=== PATIENT | male | born 1965 | race Caucasian/White ===

== ENCOUNTER 2023-09-29 15:19 | Inpatient (IN) | payer OTHER ==
[2023-09-29 17:27] VITALS: BMI 26.9
[2023-09-29] MEDS ORDERED: chlordiazePOXIDE HCL 25 MG CAPSULE PO PRN (18:01)
[2023-09-29] MEDS ORDERED: BENZOCAINE/MENTHOL (CHLORASEPTIC ) LOZENGE MM PRN (18:27)
[2023-09-29] MEDS ORDERED: POLYETHYLENE GLYCOL (HEALTHYLAX) 3350 17 GM PACKET PO PRN (18:27)
[2023-09-29] MEDS ORDERED: DICYCLOMINE HCL 10 MG CAPSULE PO PRN (18:27)
[2023-09-29] MEDS ORDERED: IBUPROFEN 400 MG TABLET (FP) PO PRN (18:27)
[2023-09-29] MEDS ORDERED: MAGNESIUM HYDROX 2400MG/30ML ORAL SUSPENSION 30 ML CUP PO PRN (18:27)
[2023-09-29] MEDS ORDERED: ONDANSETRON *ODT* 4 MG TABLET SL PRN (18:27)
[2023-09-29] MEDS ORDERED: LOPERAMIDE HCL 2 MG CAPSULE PO PRN (18:27)
[2023-09-29] MEDS ORDERED: BENZONATATE 200 MG CAPSULE PO PRN (18:27)
[2023-09-29] MEDS ORDERED: NICOTINE POLACRILEX 2 MG GUM BUC PRN (18:27)
[2023-09-29] MEDS ORDERED: P-EPHED 60MG/TRIPROLIDI 2.5MG TABLET PO PRN (18:27)
[2023-09-29] MEDS ORDERED: levETIRAcetam 500 MG TABLET (FP) PO ONE (18:27)
[2023-09-29] MEDS ORDERED: guaiFENesin 600 MG TABLET.ER (FP) PO PRN (18:27)
[2023-09-29] MEDS ORDERED: MAG HYDROX/AL HYDROX/SIMETH 30 ML UNIT-DOSE CUP PO PRN (18:27)
[2023-09-29] MEDS: levETIRAcetam 500 MG TABLET (FP) PO SCH (18:35)
[2023-09-29] MEDS: propRANOLol HCL 10 MG TABLET PO ONE (18:35)
[2023-09-29] MEDS: chlordiazePOXIDE HCL 25 MG CAPSULE PO SCH (18:35)
[2023-09-29] MEDS: THIAMINE HCL 100 MG TABLET (FP) PO SCH (22:13)
[2023-09-29] MEDS: BACITRACIN 0.9 GM PACKET TP SCH (22:13)
[2023-09-29] MEDS: MELATONIN 5 MG TABLETS PO SCH (22:14)
[2023-09-30] MEDS: PRENATAL VITAMINS W/ FOLIC ACID TABLET (FP) PO SCH (10:31)
[2023-09-30 10:48] LABS: HEMATOCRIT 35.5 % (35.4-49); HEMOGLOBIN 11.6 GM/dL (11.7-16.9); MCH 30.2 pg (25.7-33.7); MCHC 32.8 g/dl (32.0-35.9); MEAN CELL VOLUME 92.2 fl (80-96); MEAN PLT VOLUME 7.8 fl (7.5-11.1); PLATELET COUNT 135 10^3/uL (134-434); RBC 3.85 M/mm3 (4.00-5.60); RDW 18.4 % (11.9-15.9); WHITE BLOOD COUNT 4.1 K/mm3 (4.0-10.0)
[2023-09-30 11:25] LABS: POTASSIUM 3.7 mmol/L (3.5-5.1)
[2023-09-30 11:35] LABS: BLOOD UREA NITROGEN 13.2 mg/dL (7-18); CALCIUM 8.2 mg/dL (8.5-10.1)
[2023-09-30 11:38] LABS: CREATININE 0.5 mg/dL (0.55-1.3)
[2023-09-30 11:40] LABS: BILIRUBIN,TOTAL 0.7 mg/dL (0.2-1); TOT PROT 6.4 g/dl (6.4-8.2)
[2023-09-30] MEDS: ACETAMINOPHEN 325 MG TABLET (FP) PO PRN (18:46)
[2023-09-30] MEDS: BISMUTH SUBSALICYLATE 524 MG/30 ML PO PRN (18:46)
[2023-10-01] MEDS: chlordiazePOXIDE HCL 25 MG CAPSULE PO SCH (05:57)
[2023-10-01] MEDS: METHOCARBAMOL 500 MG TABLET PO PRN (20:23)
[2023-10-02] MEDS: chlordiazePOXIDE HCL 10 MG CAPSULE PO PRN (00:48)
[2023-10-02] MEDS: chlordiazePOXIDE HCL 10 MG CAPSULE PO SCH (04:28)
[2023-10-03] MEDS: chlordiazePOXIDE HCL 10 MG CAPSULE PO SCH (05:22)
[2023-10-03] MEDS: ASPIRIN 81 MG CHEWABLE TABLETS PO ONE (08:36)
[2023-10-03 10:57] VITALS: BP 129/81; PULSE 72; RESP 17; TEMP 97.7
[2023-10-04] MEDS ORDERED: chlordiazePOXIDE HCL 10 MG CAPSULE PO ONE (05:00)
== END 2023-09-30 23:00 | disposition short-term general hospital (02) | DRG 775 ==
LOC: YASAS 15:19 → Y3N 18:39
PROVIDERS: ADMIT Allergy & Immunology; ATTEND Surgery
PROC: HZ2ZZZZ Detoxification Services for Substance Abuse Treatment (ICD-10-PCS; principal; 2023-09-29)
DX: F10.230 Alcohol dependence with withdrawal, uncomplicated (principal); I10 Essential (primary) hypertension; R07.9 Chest pain, unspecified; R29.6 Repeated falls; Z59.00 Homelessness unspecified; I25.2 Old myocardial infarction
CPT/HCPCS: 36415; 80053; 85027; 86780; 87635; 93005; 93010

== ENCOUNTER 2023-10-03 09:36 | Observation (INO) | payer OTHER ==
[2023-10-03 10:07] VITALS: BMI 26.9
[2023-10-03] MEDS ORDERED: chlordiazePOXIDE HCL 10 MG CAPSULE ONE (12:17)
[2023-10-03] MEDS: chlordiazePOXIDE HCL 10 MG CAPSULE PO ONE (12:20)
[2023-10-03 12:29] LABS: BASO % 0.7 % (0-2.0); EOS % 3.7 % (0-4.5); HEMATOCRIT 40.5 % (35.4-49); HEMOGLOBIN 13.3 GM/dL (11.7-16.9); LYMPH % 22.7 % (8-40); MCH 30.2 pg (25.7-33.7); MCHC 32.7 g/dl (32.0-35.9); MEAN CELL VOLUME 92.4 fl (80-96); MEAN PLT VOLUME 7.3 fl (7.5-11.1); MONO % 11.4 % (3.8-10.2); NEUT % 61.5 % (42.8-82.8); PLATELET COUNT 193 10^3/uL (134-434); RBC 4.38 M/mm3 (4.00-5.60); RDW 18.8 % (11.9-15.9); WHITE BLOOD COUNT 5.4 K/mm3 (4.0-10.0)
[2023-10-03 12:46] LABS: POTASSIUM 4.2 mmol/L (3.5-5.1)
[2023-10-03 12:48] LABS: ALBUMIN 3.5 g/dl (3.4-5.0); CALCIUM 9.1 mg/dL (8.5-10.1)
[2023-10-03 12:49] LABS: BLOOD UREA NITROGEN 8.2 mg/dL (7-18)
[2023-10-03 12:52] LABS: CREATININE 0.6 mg/dL (0.55-1.3)
[2023-10-03 12:54] LABS: BILIRUBIN,TOTAL 0.3 mg/dL (0.2-1); TOT PROT 7.6 g/dl (6.4-8.2)
[2023-10-03 13:12] LABS: INR 0.92 (0.83-1.09); PROTHROMBIN TIME (PATIENT) 10.7 SEC (9.7-13.0)
[2023-10-03 13:14] LABS: ACTIVATED PTT 28.1 SECONDS (25.2-36.5)
[2023-10-03 13:34] LABS: N-TERMINAL BNP 668.9 pg/ml (5-125)
[2023-10-03] MEDS ORDERED: chlordiazePOXIDE HCL 25 MG CAPSULE PO PRN (22:19)
[2023-10-03] MEDS ORDERED: chlordiazePOXIDE HCL 25 MG CAPSULE ONE (22:45)
[2023-10-03] MEDS: chlordiazePOXIDE HCL 25 MG CAPSULE PO ONE (22:47)
[2023-10-03] MEDS: chlordiazePOXIDE HCL 25 MG CAPSULE PO SCH (23:00)
[2023-10-03 23:52] VITALS: RESP 16
[2023-10-04] MEDS: FOLIC ACID INJECTION - 1 MG, THIAMINE HCL 100 MG, MULTIVIT INJECTION ADULT 10 ML in SOD... IVPB ONE (00:10)
[2023-10-04 04:28] LABS: PH,URINE 7.5 (5.0-8.0); URINE APPEARANCE CLEAR; URINE BILIRUBIN NEGATIVE (NEGATIVE); URINE COLOR YELLOW; URINE GLUCOSE (UA) NEGATIVE (NEGATIVE); URINE KETONE NEGATIVE (NEGATIVE); URINE LEUK ESTERASE NEGATIVE (NEGATIVE); URINE NITRITE NEGATIVE (NEGATIVE); URINE PROTEIN NEGATIVE (NEGATIVE); URINE UROBILINOGEN 0.2 mg/dL (0.2-1.0)
[2023-10-04] MEDS: chlordiazePOXIDE HCL 10 MG CAPSULE PO ONE (05:11)
[2023-10-04 05:27] LABS: COCAINE, UR NEGATIVE (NEGATIVE); METHADONE, UR NEGATIVE (NEGATIVE); OPIATES, URI NEGATIVE (NEGATIVE); PHENCYCLIDINE,URINE NEGATIVE (NEGATIVE); URINE AMPHETAMINES NEGATIVE (NEGATIVE); URINE BARBITURATES NEGATIVE (NEGATIVE)
[2023-10-04 05:30] LABS: URINE BENZODIAZEPINES POSITIVE (NEGATIVE)
[2023-10-04 08:42] VITALS: BP 118/94; PULSE 89; TEMP 98.4
[2023-10-04] MEDS: THIAMINE HCL 100 MG TABLET (FP) PO SCH (09:24)
[2023-10-04] MEDS: ENOXAPARIN NA (PORCINE) 40 MG/0.4 ML DISP.SYRIN SQ SCH (09:24)
[2023-10-05] MEDS ORDERED: chlordiazePOXIDE HCL 25 MG CAPSULE PO SCH (05:00)
[2023-10-06] MEDS ORDERED: chlordiazePOXIDE HCL 10 MG CAPSULE PO PRN
[2023-10-06] MEDS ORDERED: chlordiazePOXIDE HCL 10 MG CAPSULE PO SCH (05:00)
[2023-10-07] MEDS ORDERED: chlordiazePOXIDE HCL 10 MG CAPSULE PO SCH (05:00)
[2023-10-08] MEDS ORDERED: chlordiazePOXIDE HCL 10 MG CAPSULE PO ONE (05:00)
== END 2023-10-04 10:50 | disposition left against medical advice (07) ==
LOC: JER 09:36 → JERBED 20:06 → J4W 23:09
PROVIDERS: ADMIT Internal Medicine; ATTEND Internal Medicine
PROC: 3E033GC Introduction of Other Therapeutic Substance into Peripheral Vein, Percutaneous Approach (ICD-10-PCS; principal; 2023-10-03)
DX: R07.89 Other chest pain (principal); Z86.73 Personal history of transient ischemic attack (TIA), and cerebral infarction without residual deficits; I25.2 Old myocardial infarction; I10 Essential (primary) hypertension; R56.9 Unspecified convulsions; I25.10 Atherosclerotic heart disease of native coronary artery without angina pectoris; I11.0 Hypertensive heart disease with heart failure; F10.99 Alcohol use, unspecified with unspecified alcohol-induced disorder; Z86.718 Personal history of other venous thrombosis and embolism
CPT/HCPCS: 36415; 71046-TC-FY; 71275-TC; 80053; 80307; 81003; 82550; 83880; 84484; 85025; 85379; 85610; 85730; 93005; 93010; 96365; 99285-25; G0378; Q9967